=== PATIENT | female | born 1945 | race Caucasian/White ===

== ENCOUNTER 2019-07-15 02:09 | Outpatient (CLI) | payer MEDICARE, OTHER, SELFPAY ==
[2019-07-15 08:56] LABS: Hemoglobin A1C 6.2 % (4.5-6.2)
[2019-07-15 09:48] LABS: Anion Gap 11.2 mmol/L (3-11); BUN 14 mg/dL (7-18); CO2 26.8 mmol/L (21.0-32.0); CREATININE 0.93 mg/dL (0.55-1.02); Calcium 8.6 mg/dL (8.5-10.1); Calculated LDL 125 mg/dL; Chloride 101 mmol/L (98-107); Cholesterol 188 mg/dL (50-200); Estimated GFR 59.26 (mL/min/1.73m2); Glucose 97 mg/dL (70-100); HDL Cholesterol 50 mg/dL (40-60); Potassium 4.3 mmol/L (3.5-5.1); Sodium 139 mmol/L (136-145); TSH 4.84 uIU/mL (0.36-3.74); Triglyceride 66 mg/dL (30-150)
[2019-07-15 10:08] LABS: FREE T4 1.17 ng/dL (0.76-1.46)
== END 2019-07-15 02:29 ==
PROVIDERS: PCP Nurse Practitioner Family; Visit Provider Nurse Practitioner Family
DX: E03.9 Hypothyroidism, unspecified (principal); E78.5 Hyperlipidemia, unspecified; Z13.1 Encounter for screening for diabetes mellitus
CPT/HCPCS: 36415; 80048; 80061; 83036; 84439; 84443

== ENCOUNTER 2019-10-06 14:57 | Outpatient (CLI) | payer MEDICARE, OTHER, SELFPAY ==
[2019-10-06 16:04] LABS: Abs Immature Grans 0.03 k/cumm (0.0-0.09); Absolute Basophil Count 0.01 k/cumm (0.0-0.2); Absolute Eosinophil Count 0.01 k/cumm (0.0-0.7); Absolute Lymphocyte Count 1.68 k/cumm (1.2-3.4); Absolute Monocyte Count 0.86 k/cumm (0.11-0.7); Absolute Neutrophil Count 2.42 k/cumm (1.2-6.7); Basophils % 0.2; Eosinophils % 0.2; HCT 44.3 % (36.0-46.0); HGB 14.8 g/dL (12.0-15.5); Immature Grans % 0.6 %; Lymphocytes % 33.5; Mean Corp. HGB Concentration 33.4 g/dL (32.0-36.0); Mean Corpuscular Volume 89.9 fL (80-95); Monocytes % 17.2; Neutrophils % 48.3; Platelet Count 123 x1000/uL (130-400); RBC 4.93 m/cumm (4.00-5.20); RBC Distribution Width 13.6 % (11.7-14.6); White Blood Cell Count 5.01 k/cumm (4.4-10.8)
[2019-10-06 19:00] LABS: Magnesium 2.2 mg/dL (1.8-2.4); TSH (W/Ref FT4) 0.97 uIU/mL (0.36-3.74)
== END 2019-10-06 15:17 ==
PROVIDERS: PCP Nurse Practitioner Family; Visit Provider Internal Medicine
DX: E83.42 Hypomagnesemia (principal); E03.9 Hypothyroidism, unspecified; R50.9 Fever, unspecified
CPT/HCPCS: 36415; 83735; 84443; 85025

== ENCOUNTER 2019-10-24 10:00 | Outpatient (CLI) | payer MEDICARE, OTHER, SELFPAY ==
[2019-10-24 16:07] LABS: HCT 44.1 % (36.0-46.0); HGB 14.5 g/dL (12.0-15.5); Mean Corp. HGB Concentration 32.9 g/dL (32.0-36.0); Mean Corpuscular Hemoglobin 29.7 pg (27.0-33.0); Mean Corpuscular Volume 90.4 fL (80-95); Mean Platelet Volume 12.8 fL (8.0-11.0); Platelet Count 104 x1000/uL (130-400); RBC 4.88 m/cumm (4.00-5.20); RBC Distribution Width 13.3 % (11.7-14.6); White Blood Cell Count 4.65 k/cumm (4.4-10.8)
== END 2019-10-24 10:20 ==
PROVIDERS: PCP Nurse Practitioner Family; Visit Provider Nurse Practitioner Family
DX: D69.6 Thrombocytopenia, unspecified (principal)
CPT/HCPCS: 36415; 85027

== ENCOUNTER 2019-11-14 11:01 | Outpatient (CLI) | payer MEDICARE, OTHER, SELFPAY ==
[2019-11-14 12:57] LABS: HCT 41.7 % (36.0-46.0); HGB 13.3 g/dL (12.0-15.5); Mean Corp. HGB Concentration 31.9 g/dL (32.0-36.0); Mean Corpuscular Hemoglobin 29.4 pg (27.0-33.0); Mean Corpuscular Volume 92.1 fL (80-95); Mean Platelet Volume 11.7 fL (8.0-11.0); Platelet Count 233 x1000/uL (130-400); RBC 4.53 m/cumm (4.00-5.20); RBC Distribution Width 14.3 % (11.7-14.6); White Blood Cell Count 6.89 k/cumm (4.4-10.8)
== END 2019-11-14 11:21 ==
PROVIDERS: PCP Nurse Practitioner Family; Visit Provider Nurse Practitioner Family
DX: D69.6 Thrombocytopenia, unspecified (principal)
CPT/HCPCS: 36415; 85027

== ENCOUNTER → 2020-01-30 10:57 | Outpatient (CLI) | payer MEDICARE, OTHER, SELFPAY ==
[2020-01-30 16:09] LABS: Abs Immature Grans 0.03 k/cumm (0.0-0.09); Absolute Basophil Count 0.01 k/cumm (0.0-0.2); Absolute Eosinophil Count 0.02 k/cumm (0.0-0.7); Absolute Lymphocyte Count 1.48 k/cumm (1.2-3.4); Absolute Neutrophil Count 1.82 k/cumm (1.2-6.7); Basophils % 0.2; Eosinophils % 0.4; HCT 41.8 % (36.0-46.0); HGB 14.2 g/dL (12.0-15.5); Immature Grans % 0.6 %; Lymphocytes % 31.8; Mean Corpuscular Volume 88.2 fL (80-95); Mean Platelet Volume 11.6 fL (8.0-11.0); Monocytes % 27.9; Neutrophils % 39.1; Platelet Count 118 x1000/uL (130-400); RBC 4.74 m/cumm (4.00-5.20); RBC Distribution Width 13.6 % (11.7-14.6); White Blood Cell Count 4.66 k/cumm (4.4-10.8)
--- NOTE | 2020-01-30 16:30 | DI.RAD_ITS ---
EXAM: XR ANKLE RT COMPLETE CLINICAL HISTORY: right ankle swelling and pain, M25.571, EFFUSION, RT ANKLE, M25.471 TECHNIQUE: 2D digital imaging was performed. COMPARISON: No exams were available for comparison FINDINGS: There is marked soft tissue swelling greatest around the medial malleolus. No fracture or ankle mor tise widening is seen. Heel spurs are noted. IMPRESSION: Soft tissue swelling and heel spurs.
[2020-01-30 16:39] LABS: D-Dimer 2430 ng/mlFEU (<500)
[2020-01-30 16:55] LABS: C-Reactive Protein 0.37 mg/dL (0.0-0.3); Uric Acid 4.1 mg/dL (2.6-6.0)
[2020-02-03 10:32] LABS: Lyme Ab w Rflx to Lyme Confirm Negative (Negative)
[2020-02-03 18:25] LABS: Anaplasma phagocytophilum Negative (Negative); B. miyamotoi PCR Negative (Negative); Babesia divergens/MO-1 Negative (Negative); Babesia duncani Negative (Negative); Babesia microti Negative (Negative); Ehrlichia chaffeensis Negative (Negative); Ehrlichia ewingii/canis Negative (Negative); Ehrlichia muris eauclairensis Negative (Negative)
== END ==
PROVIDERS: PCP Nurse Practitioner Family; Visit Provider Nurse Practitioner Family
DX: M25.571 Pain in right ankle and joints of right foot (principal); M25.471 Effusion, right ankle; M79.89 Other specified soft tissue disorders; M77.31 Calcaneal spur, right foot
CPT/HCPCS: 36415; 87798; 73610; 84550; 85025; 85379; 86140; 86618

== ENCOUNTER 2020-01-30 17:55 | Emergency (ER) | payer MEDICARE, OTHER, SELFPAY ==
[2020-01-30 18:00] VITALS: BP 139/84; PULSE 94; RESP 16; TEMP 36.6; O2SAT 97
--- NOTE | 2020-01-30 18:30 | DI.US_ITS ---
EXAM: US LOWER EXTREMITY VENOUS RT CLINICAL HISTORY: pain/swelling/elevated dimer. TECHNIQUE: Right lower extremity venous ultrasound performed using grayscale, color-flow, and spectr al Doppler analysis. COMPARISON: No exams were available for comparison FINDINGS: The right common femoral, femoral and popliteal veins demonstrate normal compressibility, augmentatio n, and color Doppler. The posterior tibial veins are patent to the level of the lower leg. Thrombus is visible within the distal posterior tibial veins and extending into the foot.. No saphenous vein thrombosis or other superficial venous thrombosis is seen. No hematoma or Blanchard's cyst is seen. IMPRESSION: Distal posterior tibial vein thrombosis.. DATA REPOSITORY:
[2020-01-30 18:31] VITALS: RESP 18
--- NOTE | 2020-01-30 18:37 | W.ED.GENAD ---
Discharge Plan Disposition Patient Disposition: HOME Condition: Stable Discharge Details Chief Complaint: Vascular Clinical Impression: DVT (deep venous thrombosis) Primary Care Provider: Cheli Hutchinson ED Provider: Alexey Obando [place] Meds and New Rx's Prescriptions: New warfarin [Coumadin] 5 mg tablet 5 mg PO DAILY Qty: 7 RF: 0 enoxaparin [Lovenox] 100 mg/mL syringe 100 mg SC Q12H 5 Days Qty: 10 RF: 0 No Action aspirin [Aspir-81] 81 MG tablet,delayed release (DR/EC) 81 mg PO DAILY RF: 0 Osteo Bi-Flex Triple Strength 1 EACH tablet 2 ea PO DAILY RF: 0 amlodipine [Norvasc] 5 mg tablet 5 mg PO DAILY Qty: 90 RF: 4 levothyroxine 125 mcg tablet 125 mcg PO DAILY Qty: 90 RF: 4 Discharge Instructions Instructions: Deep Vein Thrombosis (ED) Additional Instructions: Lovenox and Coumadin as directed. Please watch for new or evolving symptoms and return immediately to the ER. I would like you to contact your primary care provider on Sunday for prompt outpatient reevaluation, you will need your INR levels checked in the next 2-3 days to determine when you may stop the Lovenox and when the Coumadin is a therapeutic range. Medical Decision Making Patient presents with atraumatic right lower leg swelling and discomfort. Certainly concerning for DVT. Given her examination low suspicion for cellulitis and/or septic joint. Certainly could be musculoskeletal in nature and the patient may not remember an injury. Reviewing labs earlier in the day, elevated d-dimer. Will add on coag studies and obtain ultrasound of the right lower extremity. Ultrasound reveals DVT. Discussed coagulation therapy options. Patient would prefer Lovenox and Coumadin. First dose of Lovenox and Coumadin given here in the ER. We discussed the importance of returning to the ER for new or worsening symptoms such as chest pain and/or shortness of breath. Reached out to care management so that she will be sure to follow-up with her primary care provider on Sunday for prompt outpatient evaluation and recheck of her INR so that once her Coumadin is appropriate they can discontinue the Lovenox. Imaging Data Radiologic Study: Attestation: I personally reviewed and interpreted this imaging study as follows: Imaging: Ultrasound Radiologist's impression: There is a DVT in the distal tibial vein HPI General Mode of arrival: ambulatory. Date/Time Provider Initiated Documentation: 01/30/20 18:22. Limitations to Documentation: no limitations. Information obtained by: patient. HPI Narrative: This is a 75-year-old female with a history of hypertension, hyperlipidemia, obesity, hypothyroidism, prediabetes, GERD, right knee surgery in November of this year, presenting with right leg pain and swelling going on for the past 3-4 days. Was seen as an outpatient today through her primary care provider, elevated d-dimer, sent to the ER for further evaluation. She denies history of DVT or PE in the past. She denies any chest pain or shortness of breath. Denies recent illness or trauma, no injury to the right leg Related Data Home Medications Medication Instructions Recorded Confirmed aspirin [Aspir 81] 81 mg PO DAILY tab-cap 08/30/15 01/30/20 [id number] 2 ea PO DAILY 12/11/17 01/30/20 [Osteo Bi-Flex Caplet] amlodipine 5 mg tablet 5 mg PO DAILY #90 tab 12/30/18 01/30/20 levothyroxine 125 mcg tablet 125 mcg PO DAILY #90 tab-cap 11/05/19 01/30/20 enoxaparin [Lovenox] 100 mg SC Q12H 5 Days #10 ml 01/30/20 warfarin [Coumadin] 5 mg PO DAILY #7 tab 01/30/20 Previous Rx's Medication Instructions Recorded amlodipine 5 mg tablet 5 mg PO DAILY #90 tab 12/30/18 levothyroxine 125 mcg tablet 125 mcg PO DAILY #90 tab-cap 11/05/19 enoxaparin [Lovenox] 100 mg SC Q12H 5 Days #10 ml 01/30/20 warfarin [Coumadin] 5 mg PO DAILY #7 tab 01/30/20 Allergies Allergy/AdvReac Type Severity Reaction Status Date / Time Sulfa (Sulfonamide Allergy Severe RESPIRATORY Unverified 01/30/20 18:05 Antibiotics) ARREST amoxicillin [From Augmentin] Allergy Intermediate Verified 01/30/20 18:05 clavulanic acid Allergy Intermediate Verified 01/30/20 18:05 [From Augmentin] articaine HCl Allergy Mild Unverified 01/30/20 18:05 [From Septocaine] cefoxitin Allergy Mild Unverified 01/30/20 18:05 epinephrine Allergy Mild Unverified 01/30/20 18:05 General Stated Complaint: Vascular VERO: 3 Review of Systems Constitutional Constitutional: Denies fatigue, Denies fever(s) and Denies weakness Eyes Eyes: Denies change in vision Cardiovascular Cardiovascular: Denies chest pain and Denies dyspnea Respiratory Respiratory: Denies cough, Denies dyspnea and Denies wheezing Gastrointestinal Gastrointestinal: Denies nausea and Denies vomiting Musculoskeletal Musculoskeletal: Denies back pain, Denies myalgias, Denies numbness and Denies tingling Integumentary/Breasts Skin/Breast: Denies rash Neurologic Neurologic: Denies numbness, Denies tingling and Denies weakness Endocrine Endocrine: Denies fatigue Hematologic/Lymphatic Hematologic/Lymphatic: Denies easy bleeding and Denies easy bruising Allergic/Immunologic Allergic/Immunologic: Denies wheezing ON LICENSE OF [facility] Medical History Diverticulosis of colon (Inactive) Essential hypertension (Chronic) Gastroesophageal reflux disease (Chronic) Hematuria, unspecified (Resolved) Negative cystoscopy and negative IVP 01/2000 Hyperlipidemia (Chronic) Hypothyroidism (Chronic) From thyroidectomy for goiter Prediabetes (Chronic) Serrated adenoma of colon (Inactive) Thyroid goiter (Resolved) Surgical History History of bilateral salpingo-oophorectomy (Acute) History of elbow surgery (Inactive ~1986) Left lateral epicondylitis surgery at [facility] History of incisional hernia repair (Inactive 03/01/10) S/P left colectomy (Inactive 01/05/09) Sigmoid resection for diverticulitis Status post thyroidectomy (Inactive 01/05/09) Family History Mother , at 94 Breast cancer Father , at 82 Colon cancer Sister No problems noted. Son Type 2 diabetes mellitus Daughter Type 2 diabetes mellitus Maternal Grandfather , at 83 Heart disease Maternal Grandmother , at 87 Heart disease Paternal Grandfather No problems noted. Paternal Grandmother No problems noted. Social History Smoking/Tobacco Use Status: Former Tobacco Use Quit Date: 01/01/81 Tobacco: How many years used: 5 Alcohol Intake: current Alcohol Intake frequency: holidays/special occasions only Alcohol type: beer and hard liquor Drug use: Never Substance use type: does not use Household members: spouse Housing: house Communication Needs: None Pets and animals: Yes Sexually active: No Do you think of yourself as: straight/heterosexual Current gender identity: female What is your relationship status?: How often do you talk on the phone with friends or family?: three or more times per week How often do you get together with friends or relatives?: once per week How often do you attend tenriism or yazidism services?: decline to answer Do you belong to any clubs or organized social groups?: yes Panel score (0-1 are the most socially isolated patients): 3 What type of physical activity do you participate in: walking 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 Amber/Episcopalian: Sabianism Seatbelt use: always Drive 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 Do you feel safe at home: Yes Do you feel safe in your relationship?: Yes Female Reproductive History Menstrual Menopause type: natural History History 2 Para 2 Hx # Term Pregnancies Multiple births Hx # Pregnancies Ectopic pregnancies AB induced Hx Number of Living Children 2 AB spontaneous Exam Const General: cooperative, healthy appearing, comfortable and no acute distress Orientation: alert, awake and oriented x3 HENMT Head: normal to inspection, normocephalic and atraumatic Mouth: moist mucous membranes Eyes Conjunctivae: conjunctivae normal Neck Neck: normal visual inspection, full ROM, trachea midline and supple Resp Effort & Inspection: normal respiratory effort and able to speak in complete sentences Auscultation: clear to auscultation bilaterally Cardio Rate: regular rate Rhythm: regular rhythm Back/Spine/Pelvis Back: No back tenderness Skin General skin exam: no rashes or lesions noted Neuro General: patient alert, patient awake, patient oriented x3, moves all extremities and no focal motor deficits Gait: normal gait Motor: muscle tone normal throughout and strength 5/5 throughout Sensory Exam: no sensory deficits noted Extrem General: full ROM, capillary refill normal, normal gait, calf tenderness on the right, pedal edema on the right (1+) and other (Right leg, positive Homans sign) Right lower extremity: full ROM and normal capillary refill; no cyanosis Psych Appearance: grossly normal Mental Status: mental status grossly normal Course Vital Signs Vital signs: Vital Signs Temperature 36.6 C 01/30/20 18:00 Pulse 94 H 01/30/20 18:00 Respiratory Rate 16 01/30/20 18:00 Blood Pressure 139/84 01/30/20 18:00 Pulse Oximetry 97 01/30/20 18:00 Temperature 36.6 C 01/30/20 18:00 Temperature Source Skin 01/30/20 18:00 Pulse 94 H 01/30/20 18:00 Respiratory Rate 16 01/30/20 18:00 Respiratory Effort 01/30/20 18:06 Blood Pressure 139/84 01/30/20 18:00 Blood Pressure Position Sitting 01/30/20 18:00 Pulse Oximetry 97 01/30/20 18:00 Oxygen Delivery Method Room Air 01/30/20 18:00 Oxygen Flow Rate 0 01/30/20 18:00 Pain Level 0 01/30/20 18:00 Comment 01/30/20 18:00
--- NOTE | 2020-01-30 19:30 | DI.VRAD_ITS ---
Addendum created by Yuriy Trevino MD on 01/30/2020 7:33:04 PM EDT THIS REPORT CONTAINS FINDINGS THAT MAY BE CRITICAL TO PATIENT CARE. The findings were verbally communicated via telephone conference with Alexey Obando at 7:32 PM EDT on 01/30/2020. The findings were acknowledged and understood. Initial report created on 01/30/2020 7:30:13 PM EDT PROCEDURE INFORMATION: Exam: US Duplex Right Lower Extremity Veins, Limited Exam date and time: 01/30/2020 7:12 PM Age: 75 years old Clinical indication: Edema, localized and swelling (edema) of limb; Lower extremity, right; Foot and other: Ankle; Patient HX: Pain and swelling the rle, elevated d-dimer TECHNIQUE: Imaging protocol: Real-time Duplex ultrasound of the Right Lower Extremity with 2-D fine scale, color Doppler flow and spectral waveform analysis with image documentation. Limited exam was focused on the right lower extremity veins. COMPARISON: No relevant prior studies available. FINDINGS: Right deep veins: No thrombus is seen within the right common femoral, femoral, popliteal or proximal posterior tibial vein. There is thrombus seen within the distal right posterior tibial vein extending into the foot. Right superficial veins: The greater saphenous vein is patent. Soft tissues: Soft tissue swelling in the medial right ankle. IMPRESSION: Findings suspicious for DVT in the distal right posterior tibial vein. Dictated and Authenticated by: Yuriy Trevino MD. Ordering:RYNE Blackburn MD
[2020-01-30 19:55] LABS: INR 1.1 (0.9-1.1); PTT Activated 23.9 sec (21.0-31.4); Prothrombin Time 10.8 sec (9.3-11.0)
[2020-01-30] MEDS: Warfarin 5 MG TAB PO (20:10)
[2020-01-30] MEDS: Enoxaparin 100 MG/ML SYR SC (20:10)
[2020-01-30 20:18] VITALS: BP 143/78; PULSE 82; RESP 18; O2SAT 96
--- NOTE | 2020-01-31 11:21 | NUR.NOTE ---
Nursing Note: [facility] pharmacy called asking for the diagnosis of the patient. I told him DVT. He clarified the 2 prescriptions warfarin and coumadin. I told him that those were the ones in the chart that were new. Teresa Hess.
--- NOTE | 2020-01-31 11:24 | NUR.NOTE ---
Nursing Note: [facility] called asking for the diagnosis of the patient and he was told DVT. He also clarified the prescriptions and I told him Lovenox and coumadin were the new ones in the chart. Teresa Hess.
== END 2020-01-30 20:55 | disposition home or self-care (01) ==
PROVIDERS: Emergency Provider Physician Assistant; PCP Nurse Practitioner Family
DX: I82.441 Acute embolism and thrombosis of right tibial vein (principal); Z96.651 Presence of right artificial knee joint; I10 Essential (primary) hypertension; M25.571 Pain in right ankle and joints of right foot; M25.471 Effusion, right ankle; M79.89 Other specified soft tissue disorders; M77.31 Calcaneal spur, right foot
CPT/HCPCS: 36415; 87798; 96372; 99284; 73610; 84550; 85025; 85379; 85610; 85730; 86140; 86618; 93971; J1650

== ENCOUNTER 2020-03-18 13:01 | Outpatient (CLI) | payer MEDICARE, OTHER, SELFPAY ==
--- NOTE | 2020-03-18 15:15 | DI.US_ITS ---
EXAM: US LOWER EXTREMITY VENOUS RT CLINICAL HISTORY: RLE swelling, known DVT of R posterior tibial vein, M79.89. TECHNIQUE: Right lower extremity venous ultrasound performed using grayscale, color-flow, and spectr al Doppler analysis. COMPARISON: No exams were available for comparison FINDINGS: The right common femoral, femoral and popliteal veins demonstrate normal compressibility, augmentatio n, and color Doppler. The posterior tibial veins are patent. The previously noted posterior tibial v ein clots have resolved. No saphenous vein thrombosis is seen. There is a dilated, tortuous superf icial vein in the medial distal calf in the area the swelling and pain which contains thrombus. No h ematoma or Blanchard's cyst is seen. IMPRESSION: Superficial thrombophlebitis.. No evidence of DVT. DATA REPOSITORY:
== END 2020-03-18 13:21 ==
PROVIDERS: PCP Nurse Practitioner Family; Visit Provider Nurse Practitioner Family
DX: R22.41 Localized swelling, mass and lump, right lower limb (principal); M79.89 Other specified soft tissue disorders; I82.811 Embolism and thrombosis of superficial veins of right lower extremity
CPT/HCPCS: 93971

== ENCOUNTER 2020-04-01 02:30 | Outpatient (CLI) | payer MEDICARE, OTHER, SELFPAY ==
[2020-04-01 12:37] LABS: HCT 44.3 % (36.0-46.0); HGB 14.7 g/dL (12.0-15.5); Mean Corp. HGB Concentration 33.2 g/dL (32.0-36.0); Mean Corpuscular Hemoglobin 29.9 pg (27.0-33.0); Mean Platelet Volume 12.5 fL (8.0-11.0); Platelet Count 125 x1000/uL (130-400); RBC 4.92 m/cumm (4.00-5.20); White Blood Cell Count 4.34 k/cumm (4.4-10.8)
[2020-04-01 12:51] LABS: Hemoglobin A1C 6.2 % (3.8-5.6)
== END 2020-04-01 02:50 ==
PROVIDERS: PCP Nurse Practitioner Family; Visit Provider Nurse Practitioner Family
DX: R73.03 Prediabetes (principal); D69.6 Thrombocytopenia, unspecified
CPT/HCPCS: 36415; 85027; 83036

== ENCOUNTER 2020-12-02 04:03 | Outpatient (CLI) | payer MEDICARE, OTHER, SELFPAY ==
[2020-12-02 12:18] LABS: HCT 46.8 % (36.0-46.0); HGB 15.5 g/dL (11.2-15.7); MCH 29.4 pg (27.0-33.0); MCHC 33.1 % (32.0-36.0); MCV 88.8 fL (80-95); MPV 12.8 fL (8.0-11.0); Platelet Count 107 10^3/uL (130-400); RBC 5.27 10^6/uL (3.93-5.22); RDW 12.6 % (11.7-14.6); RDW-SD 41.8 fL; WBC 5.97 10^3/uL (4.4-10.8)
[2020-12-02 12:25] LABS: Hemoglobin A1C 6.4 % (<5.7)
[2020-12-02 13:38] LABS: Anion Gap 11.3 mmol/L (3-11); BUN 13 mg/dL (7-18); CO2 25.7 mmol/L (21.0-32.0); CREATININE 0.9 mg/dL (0.55-1.02); Calcium 9.3 mg/dL (8.5-10.1); Chloride 102 mmol/L (98-107); FREE T4 1.37 ng/dL (0.76-1.46); Glucose 104 mg/dL (74-106); Potassium 4.3 mmol/L (3.5-5.1); Sodium 139 mmol/L (136-145); TSH 0.95 uIU/mL (0.36-3.74)
[2020-12-02 13:54] LABS: Calculated LDL 151 mg/dL (<100); Cholesterol 210 mg/dL (<200); HDL Cholesterol 38 mg/dL (40-60); Triglyceride 107 mg/dL (<150)
== END 2020-12-02 04:04 | disposition home or self-care (01) ==
LOC: LBO 04:03
PROVIDERS: PCP Nurse Practitioner Family; Visit Provider Nurse Practitioner Family
DX: E03.9 Hypothyroidism, unspecified (principal); R73.03 Prediabetes; D69.6 Thrombocytopenia, unspecified
CPT/HCPCS: 36415; 80048; 80061; 85027; 83036; 84439; 84443

== ENCOUNTER 2020-12-16 02:46 | Outpatient (CLI) | payer MEDICARE, OTHER, SELFPAY ==
[2020-12-16 12:15] LABS: ALT 40 U/L (14-59); AST 24 U/L (15-37); Albumin 4.4 g/dL (3.4-5.0); Alkaline Phosphatase 93 U/L (46-116); Anion Gap 8.5 mmol/L (3-11); BUN 14 mg/dL (7-18); Bilirubin, Total 1.2 mg/dL (0.2-1.0); CO2 28.5 mmol/L (21.0-32.0); CREATININE 0.8 mg/dL (0.55-1.02); Calcium 9.3 mg/dL (8.5-10.1); Chloride 103 mmol/L (98-107); Glucose 96 mg/dL (74-106); Potassium 4.4 mmol/L (3.5-5.1); Sodium 140 mmol/L (136-145); Total Protein 8.3 g/dL (6.4-8.2)
[2020-12-17 09:55] LABS: Hepatitis C Ab w Rflx HCV PCR Negative (Negative)
[2020-12-17 10:13] LABS: HIV-1/2 Ag & Ab Screen Negative (Negative)
[2020-12-19 15:22] LABS: ANA Interpretation Negative (Negative)
== END 2020-12-16 02:47 | disposition home or self-care (01) ==
LOC: LBO 02:46
PROVIDERS: PCP Nurse Practitioner Family; Visit Provider Nurse Practitioner Family
DX: D69.6 Thrombocytopenia, unspecified (principal); Z11.4 Encounter for screening for human immunodeficiency virus [HIV]; Z11.59 Encounter for screening for other viral diseases
CPT/HCPCS: 36415; 80053; 86803; 87389; 86038

== ENCOUNTER 2020-12-30 03:26 | Outpatient (CLI) | payer MEDICARE, OTHER, SELFPAY ==
[2020-12-30 12:28] LABS: ESR 7 mm//hr (0-30)
[2020-12-30 12:29] LABS: Abs Immature Grans 0.04 10^3/uL (0.0-0.06); Absolute Basophil Count 0.01 10^3/uL (0.0-0.2); Absolute Eosinophil Count 0.01 10^3/uL (0.0-0.7); Absolute Lymphocyte Count 1.48 10^3/uL (1.2-3.4); Absolute Monocyte Count 0.83 10^3/uL (0.1-0.8); Absolute Neutrophil Count 2.79 10^3/uL (1.2-6.7); Basophils % 0.2; Eosinophils % 0.2; HCT 44.6 % (36.0-46.0); Immature Grans % 0.8; Lymphocytes % 28.7; MCH 29.9 pg (27.0-33.0); MCHC 33.6 % (32.0-36.0); MCV 88.8 fL (80-95); MPV 12.3 fL (8.0-11.0); Monocytes % 16.1; Nucleated RBC 0 %; Platelet Count 114 10^3/uL (130-400); RBC 5.02 10^6/uL (3.93-5.22); RDW 12.8 % (11.7-14.6); RDW-SD 41.9 fL; WBC 5.16 10^3/uL (4.4-10.8)
[2020-12-30 13:26] LABS: C-Reactive Protein 0.15 mg/dL (0.0-0.3)
[2020-12-30 13:56] LABS: ALT 43 U/L (14-59); AST 25 U/L (15-37); Albumin 4.2 g/dL (3.4-5.0); Alkaline Phosphatase 83 U/L (46-116); BUN 17 mg/dL (7-18); Bilirubin, Total 1.3 mg/dL (0.2-1.0); Chloride 103 mmol/L (98-107); Estimated GFR 54.35 (mL/min/1.73m2); Ferritin 201 ng/mL (8-252); Glucose 174 mg/dL (74-106); Potassium 4.2 mmol/L (3.5-5.1); Sodium 138 mmol/L (136-145); Total Protein 7.8 g/dL (6.4-8.2); Vitamin B12 497 pg/mL (193-986)
[2020-12-30 14:04] LABS: Folate > 20.0 ng/mL (8.6-20.0)
[2020-12-30 14:28] LABS: Calcium 9.1 mg/dL (8.5-10.1)
[2020-12-31 13:15] LABS: Albumin 58.5 % (55.8-66.1); Total Protein 7.7 g/dL (6.3-8.2)
== END 2020-12-30 03:27 | disposition home or self-care (01) ==
LOC: LBO 03:26
PROVIDERS: Internal Medicine Hematology & Oncology; PCP Nurse Practitioner Family; Visit Provider Nurse Practitioner Acute Care
DX: D69.6 Thrombocytopenia, unspecified (principal); M25.561 Pain in right knee
CPT/HCPCS: 36415; 80053; 85652; 82607; 82728; 82746; 84165; 85025; 86140

== ENCOUNTER 2021-12-15 03:42 | Outpatient (CLI) | payer MEDICARE, OTHER, SELFPAY ==
[2021-12-15 13:43] LABS: Calculated LDL 146 mg/dL (<100); Cholesterol 207 mg/dL (<200); HDL Cholesterol 41 mg/dL (40-60); Triglyceride 101 mg/dL (<150)
== END 2021-12-15 03:43 | disposition home or self-care (01) ==
LOC: LBO 03:42
PROVIDERS: PCP Nurse Practitioner Family; Visit Provider Nurse Practitioner Family
DX: E78.5 Hyperlipidemia, unspecified (principal)
CPT/HCPCS: 36415; 80061

== ENCOUNTER 2022-06-22 11:17 | Outpatient (CLI) | payer MEDICARE, OTHER, SELFPAY ==
--- NOTE | 2022-06-22 11:15 | RT.EKG_ITS ---
APPROVED REPORT Exam: Resting ECG Reason for Exam: pre op exam Patient Location: O HR:73 bpm ECG Measurements Heart Rate 73 AXIS LA 246 P 33 QRSd 91 QRS -15 QT 390 T 33 QTc 430 Conclusion Sinus rhythm...normal P axis, V-rate 50- 99 Prolonged LA interval...LA >220, V-rate 50- 90
== END 2022-06-22 11:18 | disposition home or self-care (01) ==
LOC: DI.CM 11:19
PROVIDERS: PCP Nurse Practitioner Family; Visit Provider Nurse Practitioner Family
DX: Z01.811 Encounter for preprocedural respiratory examination (principal)
CPT/HCPCS: 93010

== ENCOUNTER 2022-07-05 02:44 | Outpatient (CLI) | payer MEDICARE, OTHER, SELFPAY ==
[2022-07-05 13:26] LABS: ALT 26 U/L (14-59); Anion Gap 9.5 mmol/L (3-11); BUN 13 mg/dL (7-18); CO2 26.5 mmol/L (21.0-32.0); CREATININE 0.8 mg/dL (0.55-1.02); Calculated LDL 101 mg/dL (<100); Chloride 103 mmol/L (98-107); Cholesterol 158 mg/dL (<200); Estimated GFR 76.79 (mL/min/1.73m2); Glucose 106 mg/dL (74-106); HDL Cholesterol 43 mg/dL (40-60); Potassium 4.1 mmol/L (3.5-5.1); Sodium 139 mmol/L (136-145); TSH (W/Ref FT4) 0.82 uIU/mL (0.36-3.74); Triglyceride 73 mg/dL (<150)
== END 2022-07-05 02:45 | disposition home or self-care (01) ==
LOC: LOS 02:44
PROVIDERS: Family Medicine; PCP Nurse Practitioner Family; Visit Provider Nurse Practitioner Family
DX: E78.5 Hyperlipidemia, unspecified (principal); E03.9 Hypothyroidism, unspecified
CPT/HCPCS: 36415; 80048; 80061; 84443; 84460

== ENCOUNTER → 2022-07-10 01:41 | Outpatient (CLI) | payer MEDICARE, OTHER, SELFPAY ==
--- NOTE | 2022-07-10 07:45 | DI.US_ITS ---
Exam(s) US SOFT TISS ABD WALL/LOW BACK EXAM: US SOFT TISS ABD WALL/LOW BACK CLINICAL HISTORY: swelling at site of attempted open cholecystectomy,Z98.890. TECHNIQUE: Ultrasound was performed using standard protocol. COMPARISON: CT ABD PELVIS WITH CONTRAST from 11/06/2008 FINDINGS: Sonographic assessment utilizing grayscale and color Doppler imaging was performed and targeted to th e area of clinical concern. There is a hypoechoic focus measuring 6.3 x 3.2 x 2.6 cm near the umbilicus. This could represent a seroma or hematoma. It appears to be at an incision site. IMPRESSION: Focal seroma or hematoma at the area of swelling. DATA REPOSITORY:
== END ==
PROVIDERS: PCP Nurse Practitioner Family; Visit Provider Nurse Practitioner Family
DX: L76.34 Postprocedural seroma of skin and subcutaneous tissue following other procedure; L76.32 Postprocedural hematoma of skin and subcutaneous tissue following other procedure; Z98.890 Other specified postprocedural states
CPT/HCPCS: 76705

== ENCOUNTER → 2022-08-01 12:44 | Outpatient (BNVA) | payer MEDICARE, OTHER, SELFPAY | PROVIDERS: PCP Nurse Practitioner Family; Referring Provider Nurse Practitioner Family; Visit Provider Surgery | DX: M96.843 Postprocedural seroma of a musculoskeletal structure following other procedure (principal) | CPT/HCPCS: 99203; 99213 ==

== ENCOUNTER 2022-11-07 03:42 | Outpatient (CLI) | payer MEDICARE, SELFPAY ==
[2022-11-07 12:34] LABS: Abs Immature Grans 0.03 10^3/uL (0.0-0.06); Absolute Basophil Count 0.01 10^3/uL (0.0-0.2); Absolute Lymphocyte Count 1.92 10^3/uL (1.2-3.4); Absolute Neutrophil Count 2.64 10^3/uL (1.2-6.7); Basophils % 0.2; HCT 45.4 % (36.0-46.0); HGB 15.2 g/dL (11.2-15.7); Immature Grans % 0.5; Lymphocytes % 34.3; MCH 30.2 pg (27.0-33.0); MCHC 33.5 % (32.0-36.0); MCV 90 fL (80-95); Monocytes % 17.9; Neutrophils % 47.1; Platelet Count 118 10^3/uL (130-400); RBC 5.04 10^6/uL (3.93-5.22); RDW 12.9 % (11.7-14.6); RDW-SD 42.2 fL
[2022-11-07 13:08] LABS: Hemoglobin A1C 6.1 % (<5.7)
== END 2022-11-07 03:43 | disposition home or self-care (01) ==
LOC: LBO 03:42
PROVIDERS: PCP Nurse Practitioner Family; Visit Provider Nurse Practitioner Family
DX: D69.3 Immune thrombocytopenic purpura (principal); R73.03 Prediabetes
CPT/HCPCS: 36415; 83036; 85025

== ENCOUNTER 2023-09-07 01:35 | Outpatient (CLI) | payer MEDICARE, SELFPAY ==
[2023-09-07 12:13] LABS: HCT 46.5 % (36.0-46.0); HGB 15.9 g/dL (11.2-15.7); MCH 30.3 pg (27.0-33.0); MCHC 34.2 % (32.0-36.0); MCV 89 fL (80-95); Platelet Count 199 10^3/uL (130-400); RBC 5.25 10^6/uL (3.93-5.22); RDW 13.2 % (11.7-14.6); WBC 3.43 10^3/uL (4.4-10.8)
[2023-09-07 12:28] LABS: Hemoglobin A1C 5.9 % (<5.7)
[2023-09-07 12:37] LABS: Anion Gap 11.7 mmol/L (3-11); BUN 20 mg/dL (7-18); CO2 27.3 mmol/L (21.0-32.0); CREATININE 0.9 mg/dL (0.55-1.02); Calcium 9.7 mg/dL (8.5-10.1); Calculated LDL 131 mg/dL (<100); Chloride 103 mmol/L (98-107); Cholesterol 192 mg/dL (<200); Estimated GFR 66.26 (mL/min/1.73m2); Glucose 96 mg/dL (74-106); HDL Cholesterol 44 mg/dL (40-60); Potassium 4.1 mmol/L (3.5-5.1); Sodium 142 mmol/L (136-145); TSH (W/Ref FT4) 6.78 uIU/mL (0.36-3.74); Triglyceride 87 mg/dL (<150)
[2023-09-07 13:07] LABS: FREE T4 1.17 ng/dL (0.76-1.46)
== END 2023-09-07 01:36 | disposition home or self-care (01) ==
LOC: LOS 01:35
PROVIDERS: PCP Nurse Practitioner Family; Visit Provider Nurse Practitioner Family
DX: R73.03 Prediabetes (principal); Z00.00 Encounter for general adult medical examination without abnormal findings; D69.3 Immune thrombocytopenic purpura; E78.5 Hyperlipidemia, unspecified; E03.9 Hypothyroidism, unspecified
CPT/HCPCS: 36415; 80048; 80061; 85027; 83036; 84439; 84443

== ENCOUNTER 2024-01-09 05:39 | Outpatient (CLI) | payer MEDICARE, SELFPAY ==
[2024-01-09 12:38] LABS: Absolute Basophil Count 0.02 10^3/uL (0.0-0.2); Absolute Eosinophil Count 0.01 10^3/uL (0.0-0.7); Basophils % 0.5; HGB 15.1 g/dL (11.2-15.7); MCV 92 fL (80-95); RDW 12.9 % (11.7-14.6); RDW-SD 43.8 fL
[2024-01-09 12:39] LABS: Abs Immature Grans 0.02 10^3/uL (0.0-0.06); Absolute Lymphocyte Count 1.57 10^3/uL (1.2-3.4); Absolute Monocyte Count 0.71 10^3/uL (0.1-0.8); Absolute Neutrophil Count 1.68 10^3/uL (1.2-6.7); Eosinophils % 0.2; HCT 45.8 % (36.0-46.0); Immature Grans % 0.5; Lymphocytes % 39.2; MCH 30.4 pg (27.0-33.0); MPV 13.1 fL (8.0-11.0); Monocytes % 17.7; Neutrophils % 41.9; RBC 4.97 10^6/uL (3.93-5.22); WBC 4.01 10^3/uL (4.4-10.8)
[2024-01-09 12:53] LABS: Platelet Count 94 10^3/uL (130-400)
[2024-01-09 12:54] LABS: Diff Comment Diff Reviewed; RBC Morphology Normal
[2024-01-09 13:34] LABS: TSH (W/Ref FT4) 6.23 uIU/mL (0.36-3.74)
[2024-01-09 14:15] LABS: FREE T4 0.98 ng/dL (0.76-1.46)
== END 2024-01-09 05:40 | disposition home or self-care (01) ==
LOC: LOS 05:39
PROVIDERS: PCP Nurse Practitioner Family; Visit Provider Nurse Practitioner Family
DX: D69.3 Immune thrombocytopenic purpura (principal); E03.9 Hypothyroidism, unspecified
CPT/HCPCS: 36415; 84439; 84443; 85025

== ENCOUNTER 2024-03-05 09:19 | Outpatient (REF) | payer MEDICARE, SELFPAY ==
--- NOTE | 2024-03-05 07:30 | SKI_PTH ---
PATIENT: Svetlana Syed LOC: N U#:[id number] AGE/SX: 79/F ROOM: RE03/05/[address]: Jared Man MD : 1945 BED: DIS: 03/05/2024 SPEC #: [id number] RECD: 03/05/24 17:40 STATUS: ANGEL GRISSOM #: [id number] JAY JAY: 03/05/24 07:[address]: Jared Man DEPT: Surgical Specimen RECD BY: Brenda Leigh ENTERED: 03/05/24 17:42 SP TYPE: ARJUN ZAVALETA DR: ADAN Dow Tissues: 1 - SKIN BIOPSY(SHAVE/PUNCH) Procedures: SKIN LEVEL 4 Comments: [id number]
== END 2024-03-05 09:20 | disposition home or self-care (01) ==
LOC: LBN 09:19
PROVIDERS: PCP Nurse Practitioner Family; Visit Provider Otolaryngology
DX: L98.9 Disorder of the skin and subcutaneous tissue, unspecified (principal); C44.311 Basal cell carcinoma of skin of nose
CPT/HCPCS: 88305

== ENCOUNTER 2024-03-26 01:52 | Outpatient (CLI) | payer MEDICARE, SELFPAY ==
[2024-03-26 12:34] LABS: Hemoglobin A1C 6.2 % (<5.7)
[2024-03-26 12:42] LABS: Anion Gap 12.7 mmol/L (3-11); BUN 17 mg/dL (7-18); CO2 24.3 mmol/L (21.0-32.0); CREATININE 0.9 mg/dL (0.55-1.02); Calcium 9.3 mg/dL (8.5-10.1); Calculated LDL 125 mg/dL (<100); Chloride 105 mmol/L (98-107); Cholesterol 186 mg/dL (<200); Estimated GFR 65.84 (mL/min/1.73m2); Glucose 157 mg/dL (74-106); HDL Cholesterol 41 mg/dL (40-60); Potassium 4.2 mmol/L (3.5-5.1); Sodium 142 mmol/L (136-145); TSH (W/Ref FT4) 2.72 uIU/mL (0.36-3.74); Triglyceride 104 mg/dL (<150)
== END 2024-03-26 01:53 | disposition home or self-care (01) ==
LOC: LOS 01:52
PROVIDERS: PCP Nurse Practitioner Family; Visit Provider Nurse Practitioner Family
DX: I10 Essential (primary) hypertension (principal); E78.5 Hyperlipidemia, unspecified; E03.9 Hypothyroidism, unspecified
CPT/HCPCS: 36415; 80048; 80061; 83036; 84443

== ENCOUNTER 2024-08-01 15:53 | Outpatient (REF) | payer MEDICARE, SELFPAY ==
[2024-08-01 20:48] LABS: Bilirubin Negative (Negative); Blood Trace-intact (Negative); Clarity Clear (Clear); Glucose Negative (Negative); Ketones Negative (Negative); Leukocyte Esterase Negative (Negative); Nitrite Negative (Negative); Urobilinogen 0.2 mg/dL (Up to 0.2); pH 6.5 (5-8)
[2024-08-01 20:57] LABS: Bacteria Negative HPF (Negative); C & S Indicated? No; Crystals Negative HPF (Negative); Epithelial Cells Few HPF (Negative); Mucus Negative (Negative); WBC Negative HPF (0-5)
== END 2024-08-01 15:54 | disposition home or self-care (01) ==
LOC: LBN 15:53
PROVIDERS: PCP Nurse Practitioner Family; Visit Provider Nurse Practitioner Family
DX: R35.0 Frequency of micturition (principal); Z23 Encounter for immunization; D69.3 Immune thrombocytopenic purpura; I10 Essential (primary) hypertension
CPT/HCPCS: 81003; 81015

== ENCOUNTER 2024-10-07 03:24 | Outpatient (CLI) | payer MEDICARE, SELFPAY ==
[2024-10-07 13:09] LABS: Hemoglobin A1C 6.1 % (<5.7)
[2024-10-07 13:26] LABS: Anion Gap 9.7 mmol/L (3-11); BUN 21 mg/dL (7-18); CO2 27.3 mmol/L (21.0-32.0); CREATININE 0.9 mg/dL (0.55-1.02); Calcium 9.3 mg/dL (8.5-10.1); Chloride 104 mmol/L (98-107); Estimated GFR 65.84 (mL/min/1.73m2); Glucose 94 mg/dL (74-106); Potassium 4.6 mmol/L (3.5-5.1); Sodium 141 mmol/L (136-145); TSH (W/Ref FT4) 0.46 uIU/mL (0.36-3.74); Vitamin B12 458 pg/mL (193-986)
== END 2024-10-07 03:25 | disposition home or self-care (01) ==
LOC: LOS 03:24
PROVIDERS: PCP Nurse Practitioner Family; Visit Provider Nurse Practitioner Family
DX: R73.03 Prediabetes (principal); E03.9 Hypothyroidism, unspecified; I10 Essential (primary) hypertension
CPT/HCPCS: 36415; 80048; 82607; 83036; 84443